=== PATIENT | female | born 1960 | race Two or more races ===

== ENCOUNTER 2023-09-09 11:57 | Emergency (ER) | payer OTHER ==
[~2023-09-09] VITALS: Ht 154.9 cm; Wt 81.2 kg
[2023-09-09] MEDS ORDERED: TRILEPTAL600 MG PO (12:43)
[2023-09-09] MEDS ORDERED: GABAPENTIN300 MG PO (12:43)
[2023-09-09] MEDS ORDERED: METFORMIN HCL1000 M2 PO (12:44)
[2023-09-09] MEDS ORDERED: HORIZANT600 MG PO (12:44)
[2023-09-09] MEDS ORDERED: AUGMENTIN XR 11 EACH PO (12:44)
== END 2023-09-09 15:45 | disposition home or self-care (01) ==
LOC: ER 11:58
DX: R53.81 Other malaise (principal); U07.1 COVID-19